=== PATIENT | male | born 1975 | race Two or more races ===

== ENCOUNTER 2022-10-17 15:13 | Emergency (ER) | payer MEDICAID, OTHER ==
[~2022-10-17] VITALS: Ht 182.9 cm; Wt 86.0 kg
[2022-10-17 15:21] VITALS: BP 156/114; PULSE 115; RESP 19; TEMP 98.8; O2SAT 97
== END 2022-10-17 16:30 ==
LOC: ER 16:06
DX: I10 Essential (primary) hypertension (principal); Z87.442 Personal history of urinary calculi; Z00.8 Encounter for other general examination; Z98.890 Other specified postprocedural states
CPT/HCPCS: 99283